=== PATIENT | male | born 1990 | race Caucasian/White ===

== ENCOUNTER 2017-12-12 13:10 | Emergency (ER) | payer OTHER ==
[2017-12-12] MEDS ORDERED: NS 1,000 ML IV ONE ×2 (13:54→14:36)
[2017-12-12] MEDS ORDERED: ONDANSETRON 4 MG/2 ML VIAL IVP ONE (13:58)
[2017-12-12] MEDS ORDERED: HYDROmorphONE/DILAUDID 1 MG/ML INJ IVP ONE ×4 (13:58→14:45)
[2017-12-12 14:02] LABS: PLATELET COUNT 245 10^3/uL (150-400)
--- NOTE | 2017-12-12 14:03 | EDPHY ---
General - History Smoking Status: Never smoked Narrative: CHIEF COMPLAINT: Abdominal flank pain HISTORY OF PRESENT ILLNESS: Patient presents with complaints of severe left-sided abdominal flank pain. Pain started 1 hr prior to arrival. It is severe and radiates into the suprapubic region. No testicular pain. Nausea but no vomiting. No fever. No previous incidence of this pain. No history of kidney stone. No urinary complaints. No recent illness. No other associated complaints or modifying factors. REVIEW OF SYSTEMS: Ten systems reviewed and are negative unless otherwise noted in the HPI PCP: None SPECIALISTS: None PAST MEDICAL HISTORY: Attention deficit hyperactivity disorder PAST SURGICAL HISTORY: None SOCIAL HISTORY: Nonsmoker. Occasional alcohol. No drug use. Works as a spanish speaking nanny FAMILY HISTORY: Noncontributory EXAMINATION General Appearance: Alert, no distress, in obvious discomfort. No position of comfort Head: normocephalic, atraumatic Eyes: Pupils equal and round, no conjunctival pallor or injection ENT, Mouth: Mucous membranes moist Neck: Normal inspection, supple, non-tender Respiratory: Lungs are clear to auscultation. No wheezing rhonchi or crackles Cardiovascular: Regular rate and rhythm. No murmur Gastrointestinal: Abdomen is soft and nondistended. There is left CVA tenderness. Left sided tenderness. Involuntary guarding. No tympany rigidity. Back: non-tender, no bony abnormalities Neurological: A&O, nonfocal, normal gait Skin: Warm and dry, no rash no petechiae or purpura Extremities: Nontender, no pedal edema Psychiatric: Mood and affect normal DIFFERENTIAL DIAGNOSES: Including but not limited to renal colic, ureterolithiasis, bladder calculus, enteritis, colitis, diverticulitis, UTI, pyelonephritis MDM: 2:05 p.m. Acute left-sided flank and abdominal pain with history and examination that suggest renal colic. The location of the pain suggest ureteral lithiasis. He is rolling back and forth on the bed with no position of comfort. Vital signs are stable but he is in obvious discomfort. IV Dilaudid was being administered during my examination and is starting to improve his symptoms. He has leukocytosis on CBC. His chemistry is pending. Urine is not yet available. I have ordered CT scan of the abdomen pelvis to evaluate for stone. 2:50 p.m. Ongoing pain with multiple doses of pain medication. We have given Toradol 15mg as his creatinine is 1.3. CT scan as read by me does reveal multiple renal stones without significant hydronephrosis. Awaiting Radiology interpretation. 3:00 p.m. Notified by radiologist Dr. Salas. CT scan findings discussed. There is bilateral nephrolithiasis with a bladder calculus as well. There is incidental note of a right-sided gallstone. He recommends the patient be followed up outpatient for parathyroid workup. 3:10 p.m. Patient re-evaluated. He is resting comfortably with significant improvement in his pain. Not resolved but improving. At this point he will attempt to provide a urine sample. I informed him of the incidental note of the gallstone and the recommendation of radiologist to follow up with primary care physician for parathyroid workup. He verbalizes understanding of this and will do so. This is on a nonemergent basis. 3:45 p.m. Patient re-evaluated. At this time he still cannot urinate. He thinks that he will be able to soon. IV fluid is infusing. He is resting comfortably in no acute distress. No vomiting. Vital signs stable. At this time I discussed case with Allen Worrell PA-C. He will assume care of the patient. If urinalysis unremarkable the patient be discharged home with pain medication, nausea medication and Urology follow-up. SUPERVISION: Patient was independently examined, but I discussed the case with my secondary supervising physician Dr. Dias ([email or web address]) Discussion: The patient was evaluated and managed by the Physician Musical Instrument Supervisor. I discussed the patient's presentation and course with the physician clerical dentist assistant and agree with the evaluation. My co-signature indicates that I have reviewed this chart and I agree with the findings and plan of care as documented. I am the secondary supervising physician. (Ciarra Dias) - Objective Vital Signs: Initial Vital Signs Heart Rate 84 12/12/17 13:20 Respiratory Rate 24 H 12/12/17 13:20 O2 Sat (%) 95 12/12/17 13:20 O2 Delivery Mode Room Air O2 (L/minute) 2 Allergies/Adverse Reactions: No Known Allergies Allergy (Unverified 12/12/17 13:19) Home Medications: Medication Instructions Recorded Ondansetron Odt [Zofran Odt 4 mg 4 mg PO Q6 PRN #12 tab 12/12/17 (*)] VYVANSE 12/12/17 oxyCODONE HCL/ACETAMINOPHEN 1 each PO Q4-6PRN PRN #11 tablet 12/12/17 [Percocet 5-325 mg Tablet] Laboratory Results: Laboratory Results 12/12/17 13:29 12/12/17 13:29 Medications Given: Discontinued Medications Hydromorphone HCl (Dilaudid) 1 mg IVP EDNOW ONE Stop: 12/12/17 13:59 Last Admin: 12/12/17 14:08 Dose: 1 mg Hydromorphone HCl (Dilaudid) 1 mg IVP EDNOW ONE Stop: 12/12/17 14:11 Last Admin: 12/12/17 14:14 Dose: 1 mg Hydromorphone HCl (Dilaudid) 1 mg IVP EDNOW ONE Stop: 12/12/17 14:22 Last Admin: 12/12/17 14:37 Dose: 1 mg Hydromorphone HCl (Dilaudid) 1 mg IVP EDNOW ONE Stop: 12/12/17 14:46 Last Admin: 12/12/17 15:45 Dose: 1 mg Sodium Chloride (Ns) 1,000 mls @ 0 mls/hr IV EDNOW ONE; Wide Open PRN Reason: Protocol Stop: 12/12/17 13:55 Last Admin: 12/12/17 14:08 Dose: 1,000 mls Sodium Chloride (Ns) 1,000 mls @ 0 mls/hr IV ONCE ONE PRN Reason: Wide Open Stop: 12/12/17 14:37 Last Admin: 12/12/17 14:37 Dose: 1,000 mls Ketorolac Tromethamine (Toradol) 15 mg IVP EDNOW ONE Stop: 12/12/17 14:22 Last Admin: 12/12/17 14:37 Dose: 15 mg Ondansetron HCl (Zofran) 4 mg IVP EDNOW ONE Stop: 12/12/17 13:59 Last Admin: 12/12/17 14:08 Dose: 4 mg Tamsulosin HCl (Flomax) 0.4 mg PO EDNOW ONE Stop: 12/12/17 15:54 Last Admin: 12/12/17 16:28 Dose: 0.4 mg Departure - Departure Disposition: Home, Routine, Self-Care Clinical Impression: Renal colic on left side, Nephrolithiasis Gallstone Qualifiers: Cholecystitis presence: without cholecystitis Biliary obstruction: without biliary obstruction Qualified Code(s): K80.20 - Calculus of gallbladder without cholecystitis without obstruction Condition: Good Instructions: Gallstones (ED), Renal Colic (ED) Additional Instructions: 1. Medication as prescribed 2. Contact the on-call primary care physician as provided for further care and discuss the further parathyroid workup 3. Contact the on-call urologist as provided for definitive care of the renal colic 4. Return to ED for worsening pain, fever, vomiting or difficulty urinating Referrals: Juan Diego Sales DO [Doctor of Osteopathy] - As per Instructions Alanna Vazquez MD [Medical Doctor] - As per Instructions Prescriptions: Ondansetron Odt [Zofran Odt 4 mg (*)] 4 mg PO Q6 PRN #12 tab PRN Reason: Nausea/Vomiting, Use 1st oxyCODONE HCL/ACETAMINOPHEN [Percocet 5-325 mg Tablet] 1 each PO Q4-6PRN PRN # 11 tablet PRN Reason: Pain, Breakthrough
[2017-12-12 14:21] VITALS: RESP 16
[2017-12-12] MEDS ORDERED: KETOROLAC 15 MG/1 ML SDV IVP ONE (14:21)
[2017-12-12] MEDS ORDERED: TAMSULOSIN HCL 0.4 MG CAP PO ONE (15:53)
[2017-12-12 18:44] VITALS: BP 118/75; PULSE 82; O2SAT 98
== END 2017-12-12 18:35 | disposition home or self-care (01) ==
DX: K80.20 Calculus of gallbladder without cholecystitis without obstruction (principal); N20.0 Calculus of kidney; E86.9 Volume depletion, unspecified
CPT/HCPCS: 96374; J1170; J1885; J2405